=== PATIENT | female | born 1960 | race Caucasian/White ===

== ENCOUNTER 2016-08-18 16:10 | Emergency (ER) | payer BC ==
[2016-08-18] MEDS ORDERED: LIDOCAINE 2% VISC 15 ML UDC ONE (18:05)
[2016-08-18] MEDS ORDERED: ALU/MAG/SIM 30 ML UDC ONE (18:05)
[2016-08-18] MEDS ORDERED: ONDANSETRON 4 MG VIAL ONE (18:41)
[2016-08-18] MEDS ORDERED: SODIUM CHLORIDE 0.9% 1,000 ML ONE (18:42)
[2016-08-18] MEDS ORDERED: MORPHINE 4 MG/ML SYR ONE (18:42)
[2016-08-18] MEDS ORDERED: FAMOTIDINE 20 MG INJ ONE (20:01)
== END 2016-08-18 20:21 | disposition home or self-care (01) ==
LOC: ER 16:33
DX: R07.89 Other chest pain (principal)
CPT/HCPCS: 36415; 71020; 80053; 81001; 82553; 83690; 83880; 84484; 85025; 85610; 85730; 86677; 87088; 93005; 96361; 96374; 96375